=== PATIENT | male | born 1980 | race Caucasian/White ===

== ENCOUNTER 2022-02-23 19:15 | Emergency (ER) | payer SELFPAY ==
[~2022-02-23] VITALS: Ht 177.8 cm; Wt 102.0 kg
[2022-02-23 19:55] VITALS: BP 161/98
== END 2022-02-24 | disposition left against medical advice (07) ==
LOC: ER 19:15
DX: T70.4XXA Effects of high-pressure fluids, initial encounter (principal); X58.XXXA Exposure to other specified factors, initial encounter; Z91.19 Patient's noncompliance with other medical treatment and regimen
CPT/HCPCS: 99281